=== PATIENT | male | born 1940 | race Caucasian/White ===

== ENCOUNTER 2019-10-26 14:56 | Inpatient (IN) | payer MEDICARE, MEDICAID ==
[~2019-10-26] VITALS: Ht 182.9 cm; Wt 82.5 kg
--- NOTE | 2019-10-26 15:04 | NUR ---
ERP AT NOW.
--- NOTE | 2019-10-26 15:38 | NUR ---
PT C/O NEEDING TO URINATE & HAVE BM. REMINDED PT THAT HE HAS CATHETER. ASSISTED PT UP TO BSC.
--- NOTE | 2019-10-26 15:50 | NUR ---
PT HAD MEDIUM FORMED BM IN BSC. ASSISTED BACK TO BED. HOSPITALIST WAS IN TO SEE PT.
[2019-10-26] MEDS ORDERED: ACETAMINOPHEN 325 MG TABLET PO PRN (16:00)
[2019-10-26] MEDS ORDERED: ONDANSETRON ODT 4 MG PO PRN (16:00)
[2019-10-26] MEDS ORDERED: ONDANSETRON 2MG/ML, 2ML IVPush PRN (16:00)
[2019-10-26] MEDS ORDERED: PLEASE ENTER ALLERGIES MC SCH (16:00)
[2019-10-26] MEDS ORDERED: TAMSULOSIN 0.4 MG CAP.ER.24H PO ONE (16:00)
--- NOTE | 2019-10-26 16:06 | NUR ---
PT BIB [place] FROM [facility] FOR URINARY RETENTION AND UTI. PT HAD SOME N/V AND WENT TO [facility] AROUND 0200. A DOUGLASS CATH WAS PLACED AND PT WAS GIVEN 2G ROCEPHIN IV. PT HAS HX OF HTN, DEMENTIA, INSOMNIA, PARKINSON'S, & ARTHRITIS. PT IS A RESIDENT OF [facility]. ARRIVES TO ED A&OX1, CALM, COOPERATIVE. RE-ORIENTED PT AND RV'WD POC WITH HIM. ERP AT BS IMMEDIATELY. FALL PRECAUTIONS IN PLACE.
[2019-10-26 16:09] LABS: MEAN CORPUSCULAR HEMOGLOBIN 29.5 pg (27.5-34.5); MEAN CORPUSCULAR HGB CONC 32.7 g/dL (33.2-36.2); MEAN CORPUSCULAR VOLUME 90.1 fL (81-97); MEAN PLATELET VOLUME 7.4 fL (7.4-10.4); PLATELET COUNT 264 x10^3/uL (130-400); RED BLOOD COUNT 4.42 x10^6/uL (4.38-5.82); RED CELL DISTRIBUTION WIDTH 15.7 % (9.4-14.8)
[2019-10-26] MEDS ORDERED: DILT120T3 PO (16:16)
[2019-10-26] MEDS ORDERED: ASPI-650 PO (16:16)
[2019-10-26] MEDS ORDERED: NAPR-685 PO (16:16)
[2019-10-26] MEDS ORDERED: DOCU250C9 PO (16:16)
[2019-10-26] MEDS ORDERED: GABA300C10 PO (16:16)
[2019-10-26] MEDS ORDERED: TAMS-11 PO (16:16)
[2019-10-26] MEDS ORDERED: TRAZ-137 PO (16:16)
[2019-10-26] MEDS ORDERED: OMEP-110 PO (16:16)
[2019-10-26] MEDS ORDERED: HYDR50TA13 PO (16:16)
[2019-10-26] MEDS ORDERED: PSYL0.5215 PO (16:16)
[2019-10-26] MEDS ORDERED: CARB1TAB44 PO (16:16)
[2019-10-26 16:29] LABS: MD YES
[2019-10-26 16:32] LABS: BAND#(MANUAL) 5.08 x10^3/uL; BANDS%(MANUAL) 25 % (0-7); EOS% (MANUAL) 1 % (1-7); LYMPH#(MANUAL) 0.81 x10^3/uL (1-3.4); LYMPHS% (MANUAL) 4 % (22-44); MONOS#(MANUAL) 1.22 x10^3/uL (0.3-2.7); MONOS% (MANUAL) 6 % (2-9); SEG#(MANUAL) 12.99 x10^3/uL (1.8-6.8); SEGS% (MANUAL) 64 % (42-75)
[2019-10-26 16:33] LABS: <PLATELET ESTIMATE> ADEQUATE; <PLT MORPHOLOGY> NORMAL PLT MORPH; <RBC MORPHOLOGY> NORMAL
[2019-10-26] MEDS: HEPARIN 5,000 UNITS/ML, 1ML SQ SCH ×2 (17:50→23:42)
[2019-10-26 18:39] VITALS: BP 140/71
[2019-10-26 22:19] VITALS: BP 131/76
[2019-10-26] MEDS: SODIUM CHLORIDE 0.9% 1,000 ML IV SCH (23:42)
[2019-10-27 01:49] VITALS: BP 117/75
[2019-10-27 03:37] VITALS: BP 107/71
[2019-10-27] MEDS ORDERED: DILTIAZEM 5 MG/ML, 5ML IVPush ONE ×2 (04:00→09:30)
[2019-10-27 07:09] LABS: ANION GAP 8 mmol/L (5-15); CALCIUM 7.9 mg/dL (8.5-10.1); CHLORIDE 112 mmol/L (98-107)
[2019-10-27 07:11] LABS: MEAN CORPUSCULAR HEMOGLOBIN 29.3 pg (27.5-34.5); MEAN CORPUSCULAR HGB CONC 32.7 g/dL (33.2-36.2); MEAN CORPUSCULAR VOLUME 89.6 fL (81-97); PLATELET COUNT 237 x10^3/uL (130-400); RED BLOOD COUNT 4.01 x10^6/uL (4.38-5.82); RED CELL DISTRIBUTION WIDTH 15.7 % (9.4-14.8)
[2019-10-27 07:12] LABS: CREATININE 2.02 mg/dL (0.7-1.3)
[2019-10-27] MEDS: SODIUM CHLORIDE 0.9% 1,000 ML IV SCH ×3 (07:22→23:21)
[2019-10-27 08:00] LABS: BAND#(MANUAL) 2.54 x10^3/uL; BANDS%(MANUAL) 16 % (0-7); EOS#(MANUAL) 0.16 x10^3/uL (0.0-0.4); EOS% (MANUAL) 1 % (1-7); LYMPH#(MANUAL) 0.64 x10^3/uL (1-3.4); LYMPHS% (MANUAL) 4 % (22-44); MD YES; MONOS#(MANUAL) 1.11 x10^3/uL (0.3-2.7); MONOS% (MANUAL) 7 % (2-9); SEG#(MANUAL) 11.45 x10^3/uL (1.8-6.8); SEGS% (MANUAL) 72 % (42-75)
[2019-10-27 08:01] LABS: <PLATELET ESTIMATE> ADEQUATE; <PLT MORPHOLOGY> NORMAL PLT MORPH; <RBC MORPHOLOGY> NORMAL
[2019-10-27 08:20] VITALS: BP 112/68
[2019-10-27] MEDS: TAMSULOSIN 0.4 MG CAP.ER.24H PO SCH (09:09)
[2019-10-27] MEDS: HEPARIN 5,000 UNITS/ML, 1ML SQ SCH ×2 (09:09→16:52)
[2019-10-27 09:50] LABS: TROPONIN I < 0.015 ng/mL (0.000-0.045)
[2019-10-27] MEDS: CEFTRIAXONE PMX 1GM/50ML 50 ML IV SCH (10:01)
[2019-10-27 10:12] LABS: MICROSCOPIC AUTO
[2019-10-27 10:15] LABS: CULTURE INDICATED? YES
[2019-10-27] MEDS ORDERED: DILTIAZEM 125 MG in SODIUM CHLORIDE 0.9% 100 ML IV SCH (10:30)
[2019-10-27 12:59] LABS: TROPONIN I < 0.015 ng/mL (0.000-0.045)
[2019-10-27 13:50] VITALS: BP 128/81
[2019-10-27] MEDS: DILTIAZEM 125 MG in SODIUM CHLORIDE 0.9% 100 ML IV SCH ×2 (15:00→23:21)
[2019-10-27 19:33] VITALS: BP 138/70
[2019-10-28] MEDS: HEPARIN 5,000 UNITS/ML, 1ML SQ SCH ×3 (00:54→17:16)
[2019-10-28 00:59] VITALS: BP 129/74
[2019-10-28 05:40] LABS: BASOPHILS % (AUTO) 0 % (0-1); EOSINOPHILS # (AUTO) 0.07 x10^3/uL (0-0.4); EOSINOPHILS % (AUTO) 1 % (1-7); LYMPHOCYTES # (AUTO) 0.74 x10^3/uL (1-3.4); LYMPHOCYTES % (AUTO) 7 % (22-44); MD NO; MEAN CORPUSCULAR HEMOGLOBIN 29.2 pg (27.5-34.5); MEAN CORPUSCULAR HGB CONC 33.1 g/dL (33.2-36.2); MEAN CORPUSCULAR VOLUME 88.1 fL (81-97); MEAN PLATELET VOLUME 7.2 fL (7.4-10.4); MONOCYTES % (AUTO) 12 % (2-9); NEUTROPHILS # (AUTO) 8.44 x10^3/uL (1.8-6.8); NEUTROPHILS % (AUTO) 80 % (42-75); PLATELET COUNT 257 x10^3/uL (130-400); RED BLOOD COUNT 3.89 x10^6/uL (4.38-5.82); RED CELL DISTRIBUTION WIDTH 15.6 % (9.4-14.8)
[2019-10-28 05:45] LABS: CHLORIDE 110 mmol/L (98-107)
[2019-10-28 05:53] LABS: ALANINE AMINOTRANSFERASE 10 U/L (12-78); ALBUMIN 1.9 g/dL (3.4-5.0); ALKALINE PHOSPHATASE 82 U/L (45-117); ANION GAP 11 mmol/L (5-15); BILIRUBIN,TOTAL 0.3 mg/dL (0.2-1.0); CALCIUM 7.9 mg/dL (8.5-10.1); CREATININE 1.49 mg/dL (0.7-1.3); TOTAL PROTEIN 5.7 g/dL (6.4-8.2)
[2019-10-28] MEDS: SODIUM CHLORIDE 0.9% 1,000 ML IV SCH ×2 (06:20→15:50)
[2019-10-28 08:10] VITALS: BP 139/78
[2019-10-28] MEDS: TAMSULOSIN 0.4 MG CAP.ER.24H PO SCH (08:46)
[2019-10-28] MEDS: CEFTRIAXONE PMX 1GM/50ML 50 ML IV SCH (08:47)
[2019-10-28 13:09] VITALS: BP 141/70
[2019-10-28] MEDS: METOPROLOL TARTRATE 25 MG TABLET PO SCH (17:16)
[2019-10-28 19:06] VITALS: BP 136/70
[2019-10-29 01:42] VITALS: BP 146/72
[2019-10-29] MEDS: HEPARIN 5,000 UNITS/ML, 1ML SQ SCH ×2 (01:44→10:04)
[2019-10-29 05:44] LABS: BASOPHILS # (AUTO) 0.02 x10^3/uL (0-0.1); BASOPHILS % (AUTO) 0 % (0-1); EOSINOPHILS # (AUTO) 0.09 x10^3/uL (0-0.4); EOSINOPHILS % (AUTO) 1 % (1-7); LYMPHOCYTES # (AUTO) 0.92 x10^3/uL (1-3.4); LYMPHOCYTES % (AUTO) 12 % (22-44); MD NO; MEAN CORPUSCULAR HEMOGLOBIN 29.2 pg (27.5-34.5); MEAN CORPUSCULAR HGB CONC 33.3 g/dL (33.2-36.2); MEAN CORPUSCULAR VOLUME 87.9 fL (81-97); MEAN PLATELET VOLUME 6.9 fL (7.4-10.4); MONOCYTES # (AUTO) 1.05 x10^3/uL (0.2-0.8); MONOCYTES % (AUTO) 14 % (2-9); NEUTROPHILS % (AUTO) 72 % (42-75); PLATELET COUNT 300 x10^3/uL (130-400); RED BLOOD COUNT 4.17 x10^6/uL (4.38-5.82); RED CELL DISTRIBUTION WIDTH 15.7 % (9.4-14.8)
[2019-10-29 05:54] LABS: ANION GAP 9 mmol/L (5-15); CALCIUM 8.5 mg/dL (8.5-10.1); CHLORIDE 107 mmol/L (98-107)
[2019-10-29 05:55] LABS: CREATININE 1.29 mg/dL (0.7-1.3)
[2019-10-29] MEDS: METOPROLOL TARTRATE 25 MG TABLET PO SCH (06:08)
[2019-10-29 07:43] VITALS: BP 150/86
[2019-10-29] MEDS: TAMSULOSIN 0.4 MG CAP.ER.24H PO SCH (08:30)
[2019-10-29] MEDS: CEFTRIAXONE PMX 1GM/50ML 50 ML IV SCH (09:53)
[2019-10-29] MEDS ORDERED: POTASSIUM CHLORIDE 20 MEQ TAB.ER.PRT PO ONE (11:00)
[2019-10-29] MEDS ORDERED: OMEPRAZOLE 20 MG CAPSULE.DR PO SCH (11:00)
[2019-10-29] MEDS ORDERED: CARBIDOPA/LEVODOPA CR 50 MG/200 MG TABLET PO SCH (11:00)
[2019-10-29] MEDS ORDERED: MAGNESIUM SULFATE PMX 2GM/50ML 50 ML IV ONE (11:00)
[2019-10-29] MEDS ORDERED: DILTIAZEM 120 MG TABLET PO SCH (11:00)
[2019-10-29] MEDS ORDERED: DILTIAZEM 90 MG TABLET ONE (11:14)
[2019-10-29] MEDS ORDERED: DILTIAZEM 30 MG TABLET ONE (11:14)
[2019-10-29] MEDS ORDERED: LACT1CAP35 PO (12:07)
[2019-10-29] MEDS ORDERED: CEFD300C37 PO (12:07)
[2019-10-29] MEDS ORDERED: CALCIUM CARBONATE 500 MG TAB.CHEW PO PRN (12:30)
[2019-10-29 12:36] VITALS: BP 154/83
[2019-10-29] MEDS ORDERED: TRAZODONE 100MG TABLET PO SCH (21:00)
[2019-10-29] MEDS ORDERED: GABAPENTIN 300 MG CAPSULE PO SCH (21:00)
[2019-10-29] MEDS ORDERED: NAPROXEN 500 MG TABLET PO SCH (21:00)
[2019-10-29] MEDS ORDERED: hydrOXyzine 50MG TABLET PO SCH (21:00)
[2019-10-30] MEDS ORDERED: ASPIRIN 325 MG TABLET EC PO SCH (09:00)
[2019-10-30] MEDS ORDERED: TAMSULOSIN 0.4 MG CAP.ER.24H PO SCH (09:00)
[2019-10-30] MEDS ORDERED: DILTIAZEM 120 MG CAP.ER.24H PO SCH (09:00)
== END 2019-10-29 17:30 | DRG 871 ==
LOC: ED 15:54 → EDBD 16:12 → EDIP 16:12 → 3N 16:22 → 4EST 10-27 03:50
PROVIDERS: ADMIT Emergency Medicine; ATTEND Emergency Medicine
PROC: 0T9B70Z Drainage of Bladder with Drainage Device, Via Natural or Artificial Opening (ICD-10-PCS; principal; 2019-10-27)
DX: A41.9 Sepsis, unspecified organism (principal); N17.0 Acute kidney failure with tubular necrosis; D68.69 Other thrombophilia; N13.6 Pyonephrosis; F02.80 Dementia in other diseases classified elsewhere, unspecified severity, without behavioral disturbance, psychotic disturbance, mood disturbance, and anxiety; G20 Parkinson's disease; G30.9 Alzheimer's disease, unspecified; I10 Essential (primary) hypertension; I48.91 Unspecified atrial fibrillation; N32.0 Bladder-neck obstruction; N40.1 Benign prostatic hyperplasia with lower urinary tract symptoms; R33.8 Other retention of urine; Z66 Do not resuscitate; R33.9 Retention of urine, unspecified
CPT/HCPCS: 36415; 71045; 80048; 80053; 81001; 83605; 83735; 84100; 84145; 84484; 85025; 87040; 87086; 93005; 93306; 99285; G0378; J0696; J1644; J3475; J7030